=== PATIENT | female | born 1970 | race Caucasian/White ===

== ENCOUNTER → 2018-01-19 | Outpatient (CLI) | payer BC ==
--- NOTE | 2018-01-19 14:19 | KCIC ---
EXAM: Bilateral diagnostic mammogram; right breast sonogram. HISTORY: 47-year-old female presents with right nipple discharge. TECHNIQUE: Full-field digital craniocaudal and mediolateral oblique views of both breasts are obtained for evaluation. Computer aided detection with [employer] iCAD software version 9.3 was applied. Sonographic imaging of the right breast targeted to the subareolar location was performed COMPARISON: 10/19/2015 BREAST PARENCHYMAL DENSITY: Level C - Heterogeneously dense. FINDINGS: There is no new suspicious mass, microcalcification or region of architectural distortion. Sonographic imaging of the right breast demonstrates dilated ducts throughout the subareolar location. No convincing intraductal lesion such as a papilloma is seen. IMPRESSION: 1. Dilated ducts within the subareolar aspect of the right breast. No convincing intraductal lesion is seen sonographically. A galactogram can be performed to exclude a sonographically occult lesion if there is persistent expressible nipple discharge. 2. No new suspicious mammographic finding. 3. BI-RADS Category 2: Benign finding(s). RECOMMENDATION: Annual mammography is recommended. Once again, a right breast galactogram can be performed if the reported nipple discharge persists and is expressible. If your mammogram demonstrates that you have dense breast tissue, which could hide abnormalities, and if you have other risk factors for breast cancer that have been identified, you might benefit from supplemental screening tests that may be suggested by your ordering physician. Dense breast tissue, in and of itself, is a relatively common condition. This information is not provided to cause undue concern, but rather to raise your awareness and to promote discussion with your physician regarding the presence of other risk factors, in addition to dense breast tissue. A report of your mammography results will be sent to you and your physician. You should contact your physician if you have any questions or concerns regarding this report. Mammography is a sensitive method for finding small breast cancers, but it does not detect them all and is not a substitute for careful clinical examination. A negative mammogram does not negate a clinically suspicious finding and should not result in delay in biopsying a clinically suspicious abnormality. PQRS compliance statement - Patient information was entered into a reminder system with a target due date for the next mammogram. "Our facility is accredited by the [employer] Mammography [employer]." Electronically signed by: Rossana Rodriguez MD (01/19/2018 2:16 PM) [id number]
== END | disposition home or self-care (01) ==
LOC: KCIC MAMMO 12:43
PROVIDERS: ATTEND Physician Assistant
DX: N64.52 Nipple discharge (principal)
CPT/HCPCS: 76641; 77066